=== PATIENT | female | born 1955 | race Caucasian/White ===

== ENCOUNTER 2017-05-05 06:45 | Observation (INO) | payer SELFPAY ==
[2017-05-05 07:35] LABS: #Basophils 0.1 thou/uL (0.0-0.2); #Eosinphils 0.1 thou/uL (0.0-0.7); #Lymphocytes 2.3 thou/uL (1.20-3.40); #Monocytes 0.5 thou/uL (0.11-0.59); #Neutrophils 2.5 thou/uL (1.40-6.50); %Basophils 0.9 % (0.0-1.0); %Eosinophils 1.8 % (0.0-10.0); %Monocytes 8.6 % (0.0-10.0); Hematocrit 39.3 % (36.0-47.0); Mean Platelet Volume 8.1 fL (7.4-10.4); White Blood Cell (WBC) Count 5.4 thou/uL (4.8-10.8)
[2017-05-05] MEDS ORDERED: Ondansetron HCl/PF 4 MG/2 ML Vial ONE (07:55)
[2017-05-05] MEDS ORDERED: Meclizine HCl 25 MG TAB ONE (07:55)
[2017-05-05 07:58] LABS: ALT (SGPT) 8 U/L (8-55); AST (SGOT) 13 U/L (5-34); Alkaline Phosphatase 92 U/L (40-150); Anion Gap 12 mmol/L (10-20); BUN (Urea Nitrogen) 13 mg/dL (9.8-20.1); Bilirubin, Total 0.6 mg/dL (0.2-1.2); CK (CPK) 51 U/L (29-168); Calc. Creatinine Clearance 0 mL/min (70-130); Calcium 9.1 mg/dL (7.8-10.44); Carbon Dioxide 24 mmol/L (22-29); Chloride 109 mmol/L (98-107); Estimated GFR-MDRD Greater than 90; Globulin 2.6 g/dL (2.4-3.5); Protein, Total 6.5 g/dL (6.0-8.3)
[2017-05-05 08:01] LABS: Troponin I Less than 0.010 ng/mL (< 0.028)
--- NOTE | 2017-05-05 08:01 | CT ---
CT HEAD WITHOUT IV CONTRAST: DATE: 05/05/17. HISTORY: Dizziness and feeling off balance. Nausea, which has been constant. Gradual onset of a headache. COMPARISON: None available. FINDINGS: There is no evidence of an acute cortical infarction, hemorrhage, mass effect, or midline shift. Low density area in the left cerebellar hemisphere posterolaterally is most likely related to the venous sinus. Ventricular system is normal in size, shape, and position. Visualized paranasal sinuses and mastoid air cells are clear. There is a lucency seen within the high right parietal bone of which th e exact etiology is uncertain. This measures approximately 8 mm. No additional lytic or sclerotic o sseous lesions are seen within the calvarium. IMPRESSION: 1. Lytic lesion within the right parietal bone near the vertex. The exact etiology is uncertain. F urther evaluation with nonemergent bone scan or MRI is suggested. 2. No acute intracranial abnormality is demonstrated. POS: [facility]
[2017-05-05] MEDS ORDERED: Diazepam 10 MG/2 ML SYRINGE IVP SCH (08:15)
[2017-05-05] MEDS ORDERED: Diazepam 5 MG TAB ONE (08:18)
[2017-05-05] MEDS ORDERED: Ondansetron ODT 4 MG TAB SL PRN (09:30)
[2017-05-05] MEDS ORDERED: Ondansetron HCl/PF 4 MG/2 ML Vial IVP PRN (09:30)
[2017-05-05 10:28] LABS: Bilirubin Negative (Negative); Blood, Urine Negative (Negative); Glucose, Urine (Dipstick) Negative (Negative); Ketone, Urine Negative (Negative); Nitrite Negative (Negative); Protein, Urine (Dipstick) Negative (Neg-Trace); Urobilinogen 0.2 mg/dL (0.2-1.0)
[2017-05-05 12:02] VITALS: BMI 24.0
[2017-05-05] MEDS ORDERED: Acetaminophen 325 MG TAB PO PRN (13:05)
[2017-05-05] MEDS ORDERED: Guaifenesin DM 100-10/5 ML UDCUP PO PRN (13:05)
[2017-05-05] MEDS: Sodium Chloride 0.9% 1,000 ML IV SCH (13:49)
--- NOTE | 2017-05-05 15:45 | HP ---
REASON FOR ADMISSION: Severe dizziness, vertigo to rule out CVA. HISTORY OF PRESENTING ILLNESS: The patient gives history of feeling very dizzy last evening around 6:00 p.m. She tried to sit for a long time and thought it would go away. When she tried to get up again, patient was extremely dizzy and started feeling nauseous as well. She vomited twice. The patient went to bed and got up this morning and felt the same. No complaints of any specific weakness in any of the extremities. No complaints of prior stroke. No complaints of chest pain, palpitations, PND or orthopnea. No complaints of cough or expectoration or fever. The patient states she has known history of hypertension and cholesterol, and is not taking any medications for the same. The patient was in snf for nearly 4-1/2 years and got out on 03/14/2017. While she was in snf, she was getting medications for her hypertension and dyslipidemia, and has not been able to procure the same after she got out. She is currently at [facility] at present. PAST MEDICAL AND SURGICAL HISTORY: History of hypertension, asthma, dyslipidemia, left fallopian tube and ovaries were removed from unknown reason when she was in her 30s. CURRENT MEDICATIONS: Takes Premarin for hot flashes, albuterol inhaler q.6 hourly p.r.n., omega 3 fatty acids daily, calcium with vitamin D and vitamin E daily. ALLERGIES: No known drug allergies. PERSONAL HISTORY: Does not abuse alcohol or drugs. No history of smoking. FAMILY HISTORY: Mom of old age at the age of 88 years. She has had dementia. She does not know much about her father. REVIEW OF SYSTEMS: The following complete review of systems was negative, unless otherwise mentioned in the HPI or below: Constitutional: Weight loss or gain, ability to conduct usual activities. Skin: Rash, itching. Eyes: Double vision, pain. ENT/Mouth: Nose bleeding, neck stiffness, pain, tenderness. Cardiovascular: Palpitations, dyspnea on exertion, orthopnea. Respiratory: Shortness of breath, wheezing, cough, hemoptysis, fever or night sweats. Gastrointestinal: Poor appetite, abdominal pain, heartburn, nausea, vomiting, constipation, or diarrhea. Genitourinary: Urgency, frequency, dysuria, nocturia. Musculoskeletal: Pain, swelling. Neurologic/Psychiatric: Anxiety, depression. Allergy/Immunologic: Skin rash, bleeding tendency. PHYSICAL EXAMINATION: GENERAL: The patient is a 61-year-old female who is currently not in any acute distress. VITAL SIGNS: Blood pressure 164/99, pulse 64 per minute, respiratory rate 18 per minute, temperature 98.4 degrees Fahrenheit, saturating 96% on room air. NECK: Supple, no elevated JVD. EYES: Extraocular muscles intact. Pupils reacting to light. ORAL CAVITY: Mucous membranes are dry. No exudates or congestion. CARDIOVASCULAR SYSTEM: S1, S2 heard. Regular rhythm. RESPIRATORY SYSTEM: Air entry 1+ bilaterally. No rales or rhonchi. ABDOMEN: Soft, bowel sounds heard. No tenderness, rigidity or guarding. EXTREMITIES: No peripheral edema or calf tenderness. VASCULAR SYSTEM: Peripheral pulses 1+ bilateral. No ischemic ulcerations or gangrene. CENTRAL NERVOUS SYSTEM: No gross focal deficits seen. Patient is alert, awake , oriented well. PSYCHIATRIC SYSTEM: The patient's mood is euthymic. No hallucinations or delusions. IMAGING AND LABORATORY DATA: CT brain done shows a lytic lesion in the right parietal lobe near the vertex. No other acute intracranial abnormality was seen. Electrolytes are stable. BUN 13, creatinine 0.5, glucose 108. Liver enzymes are within normal limits. First set of cardiac enzymes are negative. Albumin is 3.9, total protein is 6.5, and globulin is 2.6. White count of 5, hemoglobin and hematocrit 12 and 39, platelet count 229 with 46% neutrophils, MCV is 93. EKG done shows normal sinus rhythm at 67 beats per minute. CLINICAL IMPRESSION AND PLAN: The patient will be under observation on the stroke unit for severe dizziness and vertigo to rule out cerebrovascular accident. We will also obtain orthostatic blood pressures. She will be on aspirin, small dose of Lipitor, Pepcid 20 mg twice daily and normal saline at 100 mL per hour. We will obtain an MRI without contrast. Her albumin globulin ratio is normal. It is unclear the reason for her lytic lesion on the skull. Echo with 2D Doppler will be obtained as well. We will follow stroke evidence based protocol. We will obtain a chest x-ray which was not done in the ER. We will continue to closely monitor her for any hemodynamic compromise. ABDULAZIZD
--- NOTE | 2017-05-05 17:19 | RAD ---
AP VIEW OF CHEST: Date: 05/05/17 INDICATION: Rule out infiltrate. COMPARISON: None. IMPRESSION: No infiltrate seen. COMMENTS: No comparisons available. No air space consolidation, pleural effusion, or pneumothorax evident. Ther e is moderate COPD change. Heart size is normal. No acute osseous abnormality is evident. POS: [facility]
--- NOTE | 2017-05-05 18:01 | MRI ---
MRI OF BRAIN WITHOUT CONTRAST: 05/05/17 Multiplanar and multisequential imaging of the brain obtained without contrast. HISTORY: TIA. Dizziness. FINDINGS: The ventricles have normal size and position. No evidence of restricted diffusion. There is no eviden ce of infarct. There is no evidence of mass or edema. Mild chronic ischemic white matter changes are seen in the deep white matter. The intracranial internal carotid arteries and proximal cerebral arter ies show flow voids. The basilar artery is patent. Dural venous sinuses are patent. 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 IMPRESSION: Unremarkable MRI of brain. POS: [facility]
[2017-05-05] MEDS: Famotidine 20 MG TAB PO SCH (20:40)
[2017-05-05] MEDS ORDERED: Atorvastatin Calcium 10 MG TAB PO SCH (21:00)
--- NOTE | 2017-05-05 21:38 | CON ---
DATE OF CONSULTATION: 05/05/2017 REASON FOR CONSULTATION: Dizziness. HISTORY OF PRESENT ILLNESS: Ms. Landeros is a pleasant 61-year-old female who has been consul [facility] for evaluation of dizziness. She reports that yesterday evening, she developed feeling of dizzin ess and off balance. She is initially thought that this may be due to feeling tired. She had gone t o sleep. She woke up at night to go to the bathroom. When she woke up, she noticed a sudden onset o f dizziness. She felt as if the room was spinning. She had difficulty with walking and maintaining her balance. She had to hold onto things to get to the bathroom. She felt nauseated that time. She woke up this morning and continued to have these episodes of dizziness. She states that the dizzine ss is more. She describes that dizziness as being vertigo-type sensation. She denies near syncope o r syncope. She denies tinnitus or hearing loss. She denies diplopia, ptosis, dysarthria or dysphagi a. She denies numbness, tingling, or weakness in upper and lower extremities. She denies headaches, chest pain, palpitation, or dyspnea. PAST MEDICAL HISTORY: Significant for hypertension, asthma, dyslipidemia. PAST SURGICAL HISTORY: Significant for left fallopian tube and ovaries removed. CURRENT MEDICATIONS: Please review MAR. ALLERGIES: No known drug allergies. SOCIAL HISTORY: She denies smoking, alcohol use, or illicit drug use. FAMILY HISTORY: Noncontributory. REVIEW OF SYSTEMS: As mentioned in the HPI, otherwise negative. PHYSICAL EXAMINATION: VITAL SIGNS: Blood pressure 116/71, pulse of 62, temperature of 97.9, respirations of 20, O2 sats of 98% on room air. GENERAL: Well-developed, well-nourished female in no apparent distress. RESPIRATORY: Clear to auscultation bilaterally. CARDIOVASCULAR: Regular rate and rhythm. NEUROLOGIC: Mental status: The patient is awake, alert, oriented x3. Speech and language: Fluent speech. Cranial nerves: Pupils are 3 mm and reactive. Visual galarza are intact. External muscles are intact. No nystagmus is noted. Face is symmetric. Tongue and uvula are midline. Motor exam sh owed normal tone and bulk with 5/5 strength in both lower extremities. Sensory: Sensation is intact and symmetric. Deep tendon reflexes 2+ reflexes in both upper and lower extremities. Babinski: Pl mitzi responses flexion bilaterally. Coordination intact to [id number] tapping bilaterally. LABORATORY DATA: Reviewed, which included CBC, CMP, urinalysis which is essentially normal. IMAGING STUDIES: MRI brain without contrast was reviewed, which showed no acute intracranial abnorma lity it was essentially normal. IMPRESSION: Benign positional vertigo. ASSESSMENT AND PLAN: Ms. Landeros is a pleasant 61-year-old female who presented with episode s of dizziness and vertigo-type sensation. Based on the description, this is likely benign positiona l vertigo. I have reviewed her MRI brain, which is essentially normal. At this time, I would recomm end starting patient on meclizine 25 mg q.8 hours p.r.n. She may also be given Abrahan-Gurpreet exercis es to perform at home. No further neurological workup needed from my standpoint. Patient is okay to be discharged to home.
[2017-05-06] MEDS: Sodium Chloride 0.9% 1,000 ML IV SCH (02:35)
[2017-05-06 05:43] LABS: #Basophils 0.1 thou/uL (0.0-0.2); #Eosinphils 0.2 thou/uL (0.0-0.7); #Lymphocytes 2.7 thou/uL (1.20-3.40); #Monocytes 0.5 thou/uL (0.11-0.59); #Neutrophils 2.8 thou/uL (1.40-6.50); %Basophils 1.3 % (0.0-1.0); %Eosinophils 2.8 % (0.0-10.0); %Lymphocytes 43.4 % (21.0-51.0); %Monocytes 7.6 % (0.0-10.0); Hematocrit 37.9 % (36.0-47.0); Mean Platelet Volume 8.3 fL (7.4-10.4); Red Blood Cell (RBC) Count 4.02 mill/uL (4.20-5.40); White Blood Cell (WBC) Count 6.2 thou/uL (4.8-10.8)
[2017-05-06 06:09] LABS: Anion Gap 7 mmol/L (10-20); BUN (Urea Nitrogen) 15 mg/dL (9.8-20.1); Calc. Creatinine Clearance 108 mL/min (70-130); Calcium 8.8 mg/dL (7.8-10.44); Carbon Dioxide 27 mmol/L (22-29); Chloride 110 mmol/L (98-107); Cholesterol 181 mg/dl (< 200 Desired); Estimated GFR-MDRD Greater than 90; LDL Cholesterol, Calculated 116 mg/dL
[2017-05-06] MEDS: Famotidine 20 MG TAB PO SCH (08:38)
[2017-05-06] MEDS ORDERED: Enoxaparin Sodium 40 MG/0.4 ML SYRINGE SC SCH (09:00)
[2017-05-06] MEDS ORDERED: Aspirin 325 mg Enteric Coated Tablet PO SCH (09:00)
[2017-05-06] MEDS ORDERED: FLU VACC QS2017-18 36 mo. & older 0.5 ML SYRINGE IM ONE (09:00)
--- NOTE | 2017-05-06 10:41 | PDOC.PN ---
- Subjective Encounter Start Date: 05/06/17 Encounter Start Time: 07:00 Subjective: feels better, is amb in room -: no trouble hearing or tinnitus - Objective Resuscitation Status: Resuscitation Status FULL:Full Resuscitation MAR Reviewed: Yes Vital Signs & Weight: Vital Signs (12 hours) Temp Pulse Resp BP BP BP Pulse Ox 05/06/17 08:38 97.9 F 62 18 05/06/17 07:17 97.9 F 62 18 151/69 H 99 05/06/17 04:00 98.4 F 59 L 16 106/68 98 05/06/17 00:12 97.8 F 61 16 136/65 129/74 123/72 96 Weight Weight 149 lb I&O: 05/05/17 05/06/17 05/07/17 06:59 06:59 06:59 Intake Total 1620 Balance 1620 Result Diagrams: 05/06/17 04:52 05/06/17 04:52 Phys Exam - Physical Examination HEENT: PERRLA, moist MMs Neck: no JVD, supple Respiratory: no wheezing, no rales Cardiovascular: RRR, no significant murmur Gastrointestinal: soft, non-tender, positive bowel sounds Musculoskeletal: no edema, pulses present Neurological: non-focal, moves all 4 limbs Psychiatric: normal affect, A&O x 3 Dx/Plan (1) Vertigo Code(s): R42 - DIZZINESS AND GIDDINESS Status: Acute (2) HTN (hypertension) Code(s): I10 - ESSENTIAL (PRIMARY) HYPERTENSION Status: Chronic Qualifiers: Hypertension type: essential hypertension Qualified Code(s): I10 - Essential (primary) hypertension (3) Dyslipidemia Code(s): E78.5 - HYPERLIPIDEMIA, UNSPECIFIED Status: Chronic (4) Severe mitral regurgitation Code(s): I34.0 - NONRHEUMATIC MITRAL (VALVE) INSUFFICIENCY Status: Chronic - Plan needs to f/u with her PCP and her outpt appt with cardiology -: meclizine prn -: dc pt home -: MRI no ac cva, echo shows severe MR, unclear etiology -: ekg no signs of ac DE * .
[2017-05-06 11:39] VITALS: BP 126/80; TEMP 97.6
[2017-05-06] MEDS ORDERED: Meclizine HCl 25 MG TAB PO SCH (14:00)
--- NOTE | 2017-05-06 18:56 | DIS ---
DATE OF ADMISSION: 05/05/2017 DATE OF DISCHARGE: 05/06/2017 DISCHARGE DISPOSITION: To home. PRIMARY DISCHARGE DIAGNOSIS: Likely benign positional vertigo. SECONDARY DISCHARGE DIAGNOSES: Mild hypertension, dyslipidemia, severe mitral regurgitation. PROCEDURES DONE DURING HOSPITALIZATION: MRI brain done showed no acute intracranial abnormalities. The lytic lesions seen in the superior skull at the vertex noted on the CAT scan is likely due to santi chnoid granulation. Chest x-ray done showed no acute cardiopulmonary abnormalities. LDL was 116, tr iglycerides 90, HDL 47. Echo with 2D Doppler done showed an EF of 45-50%. There was severe mitral r egurgitation seen. DISCHARGE MEDICATIONS: Meclizine 25 mg p.o. twice daily p.r.n. for vertigo, Pravachol 40 mg p.o. at bedtime, fish oil 1 capsule daily, aspirin 81 mg daily, calcium carbonate 600 mg p.o. daily. ALLERGIES: No known drug allergies. DISCHARGE PLAN: Patient to follow up with primary care physician in 1 week. She also will need outp atient Cardiology consultation for her mitral regurgitation. BRIEF COURSE DURING HOSPITALIZATION: Patient initially got admitted with complaints of severe dizzin ess. This was positional. She was initially placed under stroke unit to rule out CVA. A CT scan do ne revealed no acute infarct or bleed, but showed a lytic lesion on the parietal skull plate. MRI do ne showed no acute intracranial abnormalities and the lytic lesion seen was likely due to arachnoid g ranulation. She was evaluated by Dr. Nitza Harris for Neurology as well. She was placed on meclizine due to benign positional vertigo. The patient's echo revealed severe mitral regurgitation. The katherin ent has not had any prior cardiac workup nor does she have any congenital history of heart murmur. H er cardiac enzymes x1 was negative. Her EKG was benign. In view of this, she is being discharged ho tx. She needs to follow up with primary care physician in 1 week, and also needs to have outpatient consultation with Cardiology in 4 weeks to further work up her severe mitral regurgitation. She is o therwise neurologically stable, ambulating and eating well prior to discharge.
== END 2017-05-06 14:01 | disposition home or self-care (01) ==
LOC: ERS 06:45 → 2SE 09:45
PROVIDERS: ADMIT Internal Medicine; ATTEND Internal Medicine
DX: R42 Dizziness and giddiness (principal); I10 Essential (primary) hypertension; J45.909 Unspecified asthma, uncomplicated; E78.5 Hyperlipidemia, unspecified; I34.0 Nonrheumatic mitral (valve) insufficiency; Z79.899 Other long term (current) drug therapy; Z90.721 Acquired absence of ovaries, unilateral
CPT/HCPCS: 36415; 70450; 70551; 71010; 80048; 80053; 80061; 81003; 82550; 82553; 84484; 85025; 90471; 90682; 93005; 93306; 96361; 96374; G0008; G0378; G8987-GO-CJ; G8988-GO-CI; G9162-GN-CH; G9163-GN-CH; J1650; J2405; Q2036